=== PATIENT | male | born 1990 | race Hispanic/Latino ===

== ENCOUNTER 2017-12-29 12:48 | Emergency (ER) | payer BC ==
[~2017-12-29] VITALS: Ht 182.9 cm; Wt 93.5 kg
[2017-12-29] MEDS ORDERED: GLUCAGON FOR INJ 1 MG VIAL IV ONE (13:00)
[2017-12-29] MEDS ORDERED: NITROGLYCERIN 0.4 MG SUBL SL ONE (14:15)
== END 2017-12-29 15:43 | disposition home or self-care (01) ==
LOC: FSED 12:48
DX: R09.89 Other specified symptoms and signs involving the circulatory and respiratory systems (principal); T18.128A Food in esophagus causing other injury, initial encounter
CPT/HCPCS: 96374; 99283; J1610